=== PATIENT | male | born 1980 | race Caucasian/White ===

== ENCOUNTER 2016-05-18 10:24 | Emergency (ER) | payer OTHER ==
[~2016-05-18] VITALS: Ht 182.9 cm; Wt 100.0 kg
[~2016-05-18 10:24] MED LIST: NAPR500 PO
[2016-05-18 10:28] VITALS: BP 115/81; PULSE 81; RESP 16; TEMP 98.2; O2SAT 99
--- NOTE | 2016-05-18 10:56 | PD ---
HPI Chief Complaint: Abdominal Pain Time Seen by Provider: 10:53 Travel History International Travel<30 days: No Contact w/Intl Traveler<30days: No Traveled to known affect area: No History of Present Illness HPI This patient 5 days ago with sitting up and in the active that developed a pinching sensation in his abdominal wall. Whenever he coughs or moves a certain way he aggravates the abdominal wall. He's had no vomiting or diarrhea or fever and is eating well without symptoms. Severity is mild PFSH Past Medical History Diminished Hearing: No Influenza Vaccination: No Social History Alcohol Use: Yes (SOCIALLY) Tobacco Use: No Substance Use: No Allergies-Medications (Allergen,Severity, Reaction): Coded Allergies: No Known Allergies (Unverified , 05/18/16) Reported Meds & Prescriptions Reported Meds & Active Scripts Active No Active Prescriptions or Reported Medications Review of Systems General / Constitutional: No: Fever HENT: No: Headaches Cardiovascular: No: Chest Pain or Discomfort Gastrointestinal: No: Vomiting Physical Exam Narrative GASTROINTESTINAL: Abdomen soft, non-tender, nondistended. Positive bowel sounds. No hepato-splenomegaly, or palpable masses. No guarding. SKIN: Focused skin assessment reveals no rash or ulcers. Skin is warm and dry. Palpation shows no induration or nodules. Groin: No hernia noted Data Data Last Documented VS Vital Signs Date Time Temp Pulse Resp B/P Pulse Ox O2 Delivery O2 Flow Rate FiO2 05/18/16 10:28 98.2 81 16 115/81 99 MDM Medical Decision Making Medical Screen Exam Complete: Yes Emergency Medical Condition: Yes Medical Record Reviewed: Yes Differential Diagnosis Abdominal wall strain, abdominal muscle tear, hernia Narrative Course I have reviewed the patient's electronic medical record. Presentation seems most consistent with a mild abdominal wall muscle injury. Supportive care is discussed. No objective findings on exam. No clinical suspicion of severe intra-abdominal organ problem Diagnosis Primary Impression: Abdominal wall strain Qualified Code: S39.011A - Abdominal wall strain, initial encounter Additional Instructions: The patient was advised to follow up with their physician and return if they worsen. Med/Other Pt SpecificInfo: Other Scripts No Active Prescriptions or Reported Meds Disposition: 01 DISCHARGE HOME Condition: Stable Rajendra Bailey MD May 18, 2016 10:56
== END 2016-05-18 11:13 | disposition home or self-care (01) ==
LOC: PHED 10:24
DX: S39.011A Strain of muscle, fascia and tendon of abdomen, initial encounter (principal); X58.XXXA Exposure to other specified factors, initial encounter
CPT/HCPCS: 99283

== ENCOUNTER 2017-04-09 08:10 | Emergency (ER) | payer OTHER ==
[~2017-04-09] VITALS: Ht 182.9 cm; Wt 98.0 kg
[2017-04-09 08:11] VITALS: BP 133/66; PULSE 78; RESP 18; TEMP 97.8; O2SAT 98
[2017-04-09] MEDS ORDERED: ALAW0.02 EACH EYE (08:44)
[2017-04-09] MEDS ORDERED: SULF1SOL4 RIGHT EYE (08:47)
--- NOTE | 2017-04-09 08:47 | PD ---
HPI Chief Complaint: Eye Problems/Injury Time Seen by Provider: 08:35 Travel History International Travel<30 days: No Contact w/Intl Traveler<30days: No Traveled to known affect area: No History of Present Illness HPI 36-year-old male is complaining of irritation of his right eye. Yesterday he thought that might of been a foreign body in the eye and he tried to get it out. He's had some itching and watering of both eyes that he thinks is related to allergies. This morning there was some crust in the right eye. His acuity has not been affected. He does not wear contact lenses [facility] Past Medical History Diminished Hearing: No Social History Alcohol Use: Yes (SOCIALLY) Tobacco Use: No Substance Use: No Allergies-Medications (Allergen,Severity, Reaction): Coded Allergies: No Known Allergies (Unverified Adverse Reaction, Unknown, 04/09/17) Reported Meds & Prescriptions Reported Meds & Active Scripts Active No Active Prescriptions or Reported Medications Review of Systems General / Constitutional: No: Fever, Chills Eyes: Positive: Drainage, Redness, Foreign Body Sensation, Tearing, No: Diploplia, Blurred Vision HENT: No: Headaches, Vertigo Cardiovascular: No: Chest Pain or Discomfort Respiratory: No: Cough, Shortness of Breath Gastrointestinal: No: Vomiting, Diarrhea Hematologic/Lymphatic: No: Easy Bruising Physical Exam Narrative GENERAL: [-] SKIN: Focused skin assessment warm/dry. HEAD: Atraumatic. Normocephalic. EYES: Pupils equal and round. No scleral icterus. Right eye has conjunctival injection. There is mild swelling of the upper eyelid. The eyelid was everted and no foreign body was seen. No foreign body seen in the right eye. The eye was stained with 4 seen and is negative for uptake. ENT: No nasal bleeding or discharge. Mucous membranes pink and moist. MUSCULOSKELETAL: No obvious deformities. No clubbing. No cyanosis. No edema. NEUROLOGICAL: Awake and alert. No obvious cranial nerve deficits. Motor grossly within normal limits. Normal speech. PSYCHIATRIC: Appropriate mood and affect; insight and judgment normal. Data Data Last Documented VS Vital Signs Date Time Temp Pulse Resp B/P (MAP) Pulse Ox O2 Delivery O2 Flow Rate FiO2 04/09/17 08:11 97.8 78 18 133/66 (88) 98 MDM Medical Decision Making Medical Screen Exam Complete: Yes Emergency Medical Condition: Yes Medical Record Reviewed: Yes Differential Diagnosis Differential differential includes corneal abrasion, foreign body, conjunctivitis Narrative Course Exam is negative for foreign body or abrasion. Patient will be treated for conjunctivitis Diagnosis Primary Impression: Conjunctivitis, right eye Scripts Sulfacetamide Opth Drops (Bleph-10 Opth Drops) 10 % Soln 1 DROP RIGHT EYE Q2H for Infection, #1 BOTTLE 0 Refills Prov: Jairo Rodarte MD 04/09/17 Disposition: DISCHARGE HOME Condition: Stable Jairo Rodarte MD Apr 09, 2017 08:47
== END 2017-04-09 08:58 | disposition home or self-care (01) ==
LOC: PHED 08:10
DX: H10.31 Unspecified acute conjunctivitis, right eye (principal)
CPT/HCPCS: 99283